=== PATIENT | male | born 1985 | race Caucasian/White ===

== ENCOUNTER 2019-04-06 10:09 | Emergency (ER) | payer OTHER, SELFPAY ==
--- NOTE | ~2019-04-06 | XR_ITS ---
XR hand LT min 3V 04/06/2019 10:33 INDICATION: Left hand pain. Table saw accident. Laceration to the tips of the fingers. PROCEDURE: 3 views left hand COMPARISON: No prior studies for comparison. FINDINGS: Fracture, dislocation or subluxation is not identified. There is soft tissue laceration of the tips of the third, fourth and fifth fingers distally. No underlying foreign body. IMPRESSION: 1: NO ACUTE BONE OR JOINT ABNORMALITY IDENTIFIED. Reviewed, dictated and finalized at location A. [facility]
[2019-04-06 10:18] VITALS: BP 112/58; PULSE 92; RESP 18; TEMP 37.2; O2SAT 98
[2019-04-06] MEDS: TETANUS,DIPHTHERIA,AC PERTUSSIS ADULT 0.5 ML (ADACEL) IM (10:38)
--- NOTE | 2019-04-06 10:39 | ED.WOUNDLAC ---
HPI - Wound/Laceration General Chief Complaint: Wound/Laceration Stated Complaint: hand laceration Time Seen by Provider: 04/06/19 10:17 Source: patient Mode of arrival: ambulatory Limitations: no limitations History of Present Illness HPI narrative: This is a 33 year old male that presents to the ER for laceration to left hand sustained just prior to arrival. Reports he was using his table saw and his hand slipped and hit the blade. Reports lacerations to the tips of his 2nd-5th fingers. Reports bleeding is under control. He is unsure of his last tetanus vaccine. Denies decreased ROM or numbness. Related Data Home Medications Medication Instructions Recorded Confirmed No Home Medications 04/06/19 04/06/19 Allergies Allergy/AdvReac Type Severity Reaction Status Date / Time No Known Allergies Allergy Unverified 04/06/19 10:25 Review of Systems Review of Systems: Narrative: CONSTITUTIONAL: Denies fever SKIN: Reports laceration MUSCULOSKELETAL: Denies joint pain NEUROLOGIC: Denies numbness All systems reviewed & are unremarkable except as noted in HPI and below PMFSH Family History Family History (Updated 10/14/15 @ 08:56 by DOCTOR UNKNOWN) Grandparent Family history of lymphoma Family history of type 2 diabetes mellitus Sibling Family history of type 1 diabetes mellitus Social History Social History Smoking status: Never smoker Alcohol intake: current Gender identity (if verbalized by the patient): Male Exam Narrative: Exam Narrative: GENERAL: Well-appearing, well-nourished, and in no acute distress. HEAD: Normocephalic, atraumatic. EYES: EOMI. EXTREMITIES: Normal range of motion. No edema or obvious deformity. Superficial skin tears to the tips of the left 2nd and 3rd fingers. Left 4th finger with irregular superficial laceration involving the nail. Left 5th finger with 1cm irregular laceration into subcutaneous tissue on the tip of the finger SKIN: Warm, dry, no rash. NEURO: No focal deficits. Alert and oriented x3. PSYCH: Normal mood and affect Course Vital Signs Vital signs: Vital Signs Temperature 98.9 F 04/06/19 10:18 Pulse Rate 92 04/06/19 10:18 Respiratory Rate 18 04/06/19 10:18 Blood Pressure 112/58 L 04/06/19 10:18 Pulse Oximetry 98 04/06/19 10:18 Temperature 98.9 F 02/02/20 10:18 Pulse Rate 92 04/06/19 10:18 Respiratory Rate 18 04/06/19 10:18 Blood Pressure 112/58 L 04/06/19 10:18 Pulse Oximetry 98 04/06/19 10:18 Procedures Laceration Laceration 1: Date: 04/06/19 Time: 12:17 Site: upper extremity Side (If applicable): left Size (cm): 1 Description: irregular Depth: simple, single layer Local Anesthetic: lidocaine 1% Amount of anesthesia used (mL): 2 Pre-repair: irrigated ====== Skin Level ====== Skin layer closed with: nylon Size (cm): 5-0 Number of sutures: 3 Technique: simple, interrupted ====== Subcutaneous Layer ====== ====== Muscle Layer ====== ====== Tendon Layer ====== Nerve Block Nerve Block 1: Nerve block date: 04/06/19 Nerve block time: 12:20 Time out performed: Yes Local Anesthetic: lidocaine 1% Amount of anesthesia used (mL): 2 Side: left Nerve Blocks: digital Procedure Successful: Yes Patient Tolerated Procedure: well Complications: none MDM - Wound/Laceration MDM Narrative Medical decision making narrative: Patient presents the emergency department for lacerations to the left hand sustained from a table saw. Wounds were irrigated and patient was updated on tetanus. I did have to put a few sutures in laceration to the fifth finger. Otherwise hemostasis controlled just needed to be achieved for the other ones, no suturing needed. Patient was updated on wound care. He will be given plastics for follow-up. He was given warnings to ret
[2019-04-06 12:28] VITALS: BP 128/80; PULSE 80; RESP 18; TEMP 36.7; O2SAT 99
== END 2019-04-06 12:29 | disposition home or self-care (01) ==
PROVIDERS: Emergency Provider Emergency Medicine
DX: S61.412A Laceration without foreign body of left hand, initial encounter (principal); Z23 Encounter for immunization; W31.2XXA Contact with powered woodworking and forming machines, initial encounter
CPT/HCPCS: 12001; 73130; 90471; 90715; 99283